=== PATIENT | female | born 1985 | race Caucasian/White ===

== ENCOUNTER 2020-03-22 13:26 | Outpatient (CLI) | payer OTHER, SELFPAY ==
--- NOTE | 2020-03-22 13:35 | XRR_ITS ---
PROCEDURE INFORMATION: Exam: XR Entire Spine, 2 or 3 Views, Scoliosis Exam date and time: 03/22/2020 1:39 PM Age: 35 years old Clinical indication: Condition or disease; Scoliosis; Prior surgery TECHNIQUE: Imaging protocol: XR of the entire spine, 2 or 3 views. Evaluation for scoliosis. COMPARISON: No relevant prior studies available. FINDINGS: Vertebrae: Extensive of orthopedic hardware seen in the dorsal and proximal lumbar spine. There are transpedicular screws and metallic rods in place. The hardware does not show evidence of fracture. No acute fracture. There is mild dextrocurvature of the lower dorsal spine. No anomalous vertebrae. Soft tissues: Normal. XR/XR scoliosis survey 4-5V [id number] IMPRESSION: 1. Extensive intact metallic hardware in the dorsal spine and the upper lumbar spine. 2. Mild dorsal spine dextrocurvature
== END 2020-03-22 13:27 | disposition home or self-care (01) ==
LOC: RAD 13:33
PROVIDERS: PCP Physician Assistant; Visit Provider Physician Assistant
DX: M41.9 Scoliosis, unspecified (principal)
CPT/HCPCS: 72083

== ENCOUNTER 2021-06-19 17:03 | Emergency (ER) | payer MEDICAID, SELFPAY ==
[2021-06-19 17:10] VITALS: BP 122/80; PULSE 75; RESP 18; TEMP 36.6; O2SAT 98
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
== END 2021-06-19 18:58 | disposition home or self-care (01) ==
PROVIDERS: Emergency Provider Emergency Medicine; PCP Physician Assistant
DX: R51.9 Headache, unspecified (principal); K08.89 Other specified disorders of teeth and supporting structures; Y04.2XXA Assault by strike against or bumped into by another person, initial encounter
CPT/HCPCS: 70450; 99282